=== PATIENT | male | born 1980 | race Caucasian/White ===

== ENCOUNTER 2016-04-16 17:24 | Emergency (ER) | payer OTHER ==
[2016-04-16] MEDS ORDERED: INSULIN, REG.(HUMAN) 100 U/ML VIAL SUBCU ONE (17:58)
[2016-04-16 17:59] VITALS: TEMP 96.9
--- NOTE | 2016-04-16 18:01 | ED.PDOC ---
History of Present Illness - General Chief Complaint: Diabetic Complaint Stated Complaint: Elevated blood sugar Time Seen by Provider: 04/16/16 17:53 Source: patient, RN notes reviewed, Vital Signs reviewed Exam Limitations: no limitations - History of Present Illness Initial Comments: Patient ran out of his insulin and could not get any more. Normally takes Levimir at night and a Novalog sliding scale. His blood sugar at [facility] was 394. Reports his stomach does not feel good but otherwise he is fine. He has not been ill recently, just out of insulin. Timing/Duration: unsure Severity: moderate Improving Factors: nothing Worsening Factors: nothing Associated Symptoms: loss of appetite, malaise Allergies/Adverse Reactions: Allergies Ketorolac Tromethamine [From Toradol] Allergy (Unknown, Verified 12/03/15 07:42) Sulfa Drugs Allergy (Unknown, Verified 12/03/15 07:42) NSAIDs Adverse Reaction (Verified 12/03/15 07:42) Home Medications: Ambulatory Orders Human Insulin Aspart [Novolog] 0 unit SUBCU QID PRN 12/03/15 Alprazolam [Xanax] 1 mg PO TID 02/06/16 Lisinopril 5 mg PO DAILY 02/06/16 Pantoprazole Sodium [Protonix] 40 mg PO DAILY 02/06/16 Zolpidem Tartrate [Ambien] 10 mg PO BEDTIME 02/06/16 Insulin Detemir [Levemir] 16 unit SUBCU BID 04/16/16 Pregabalin [Lyrica] 150 mg PO TID 04/16/16 tiZANidine [Zanaflex] 4 mg PO TID 04/16/16 Review of Systems - Review of Systems Constitutional: States: fever, malaise. Denies: chills, diaphoresis, weakness Respiratory: States: no symptoms reported Cardiology: States: no symptoms reported Gastrointestinal/Abdominal: States: abdominal pain, nausea. Denies: constipation, diarrhea, vomiting Genitourinary: States: no symptoms reported Musculoskeletal: States: no symptoms reported Skin: States: no symptoms reported Neurological: States: no symptoms reported Endocrine: States: no symptoms reported Hematologic/Lymphatic: States: no symptoms reported Past Medical History (General) - Patient Medical History Hx Seizures: No Hx Stroke: No Hx Dementia: No Hx Asthma: Yes Hx of COPD: No Hx Cardiac Disorders: No Hx Congestive Heart Failure: No Hx Pacemaker: No Hx Hypertension: Yes Hx Thyroid Disease: No Hx Diabetes: Yes Hx Gastroesophageal Reflux: No Hx Renal Disease: Yes - elevated levels Hx Cancer: No Hx of HIV: No Hx Hepatitis C: No Hx MRSA: Yes MRSA Source:: Wound - Vaccination History Hx Tetanus, Diphtheria Vaccination: Yes Hx Influenza Vaccination: No Hx Pneumococcal Vaccination: Yes - Social History Hx Tobacco Use: Yes Hx Chewing Tobacco Use: No Hx Alcohol Use: No Hx Substance Use: Yes - occasional marajuana Hx Substance Use Treatment: No Hx Depression: Yes Hx Physical Abuse: No Hx Emotional Abuse: No Hx Suspected Abuse: No - Female History Patient : No Family Medical History - Family History Mother Family History: Unknown Living Status: Still Living Physical Exam - Physical Exam General Appearance: Alert, Comfortable, No apparent distress, Well Developed, Well Groomed, Well Hydrated, Well Nourished Eye Exam: bilateral normal Neck: non-tender, full range of motion, supple, normal inspection Respiratory: chest non-tender, lungs clear, normal breath sounds, no respiratory distress, no accessory muscle use Cardiovascular/Chest: regular rate, rhythm, no edema, no gallop, no JVD, no murmur Gastrointestinal/Abdominal: normal bowel sounds, non tender, soft, no organomegaly, no pulsatile mass Extremity: normal range of motion, non-tender, normal inspection Neurologic: no motor/sensory deficits, alert, normal mood/affect, oriented x 3 Skin Exam: normal color, warm/dry Lymphatic: no adenopathy Progress - Progress Progress: 04/16/16 19:14 Recheck FSBS is 130. Patient is doing well and tolerating PO fluids. Reports he has prescriptions at the pharmacy, just needs someone to go get them for him. Does not need new prescriptions. - Results/Orders Results/Orders: Laboratory Tests 04/16/16 18:07 WBC 8.0 RBC 4.33 L Hgb 12.6 L Hct 38.6 L MCV 89.0 MCH 29.0 MCHC 32.8 L RDW 14.8 H Plt Count 424 H MPV 8.3 Absolute Neuts (auto) 5.30 Absolute Lymphs (auto) 2.00 Absolute Monos (auto) 0.50 Absolute Eos (auto) 0.10 Absolute Basos (auto) 0.10 Neutrophils % 66.2 Lymphocytes % 24.6 Monocytes % 6.1 Eosinophils % 1.8 Basophils % 1.3 Sodium 133 L Potassium 4.3 Chloride 100 L Carbon Dioxide 28 Anion Gap 9.3 L BUN 17 Creatinine 0.93 BUN/Creatinine Ratio 18.3 Random Glucose 278 H Serum Osmolality 277.9 Calcium 9.1 Total Bilirubin 0.3 AST 21 ALT 22 Alkaline Phosphatase 97 Serum Total Protein 7.5 Albumin 3.9 Globulin 3.6 H Albumin/Globulin Ratio 1.1 Serum Ketones Negative Departure - Departure Clinical Impression: Diabetes mellitus, Hyperglycemia Time of Disposition: 19:16 Disposition: Nursing Home Condition: Good Departure Forms: ED Discharge - Pt. Copy, Patient Portal Self Enrollment Instructions: Type 2 Diabetes Diet: diabetic diet Home Medications: Ambulatory Orders Human Insulin Aspart [Novolog] 0 unit SUBCU QID PRN 12/03/15 Alprazolam [Xanax] 1 mg PO TID 02/06/16 Lisinopril 5 mg PO DAILY 02/06/16 Pantoprazole Sodium [Protonix] 40 mg PO DAILY 02/06/16 Zolpidem Tartrate [Ambien] 10 mg PO BEDTIME 02/06/16 Insulin Detemir [Levemir] 16 unit SUBCU BID 04/16/16 Pregabalin [Lyrica] 150 mg PO TID 04/16/16 tiZANidine [Zanaflex] 4 mg PO TID 04/16/16
[2016-04-16 18:48] VITALS: O2SAT 97
[2016-04-16 19:27] VITALS: BP 123/81
== END 2016-04-16 19:26 ==
LOC: ER 17:24
DX: E11.65 Type 2 diabetes mellitus with hyperglycemia (principal); I10 Essential (primary) hypertension; J45.909 Unspecified asthma, uncomplicated; N28.9 Disorder of kidney and ureter, unspecified; F32.9 Major depressive disorder, single episode, unspecified; Z86.14 Personal history of Methicillin resistant Staphylococcus aureus infection; Z88.2 Allergy status to sulfonamides; Z88.6 Allergy status to analgesic agent; Z87.891 Personal history of nicotine dependence; Z79.4 Long term (current) use of insulin; Z79.899 Other long term (current) drug therapy

== ENCOUNTER 2016-04-17 21:14 | Emergency (ER) | payer OTHER ==
[2016-04-17] MEDS ORDERED: INSULIN, REG.(HUMAN) 100 U/ML VIAL IV ONE (21:23)
[2016-04-17] MEDS ORDERED: SODIUM CHLORIDE 0.9% 1000ML 1,000 ML IVS ONE (21:23)
[2016-04-17 21:39] VITALS: TEMP 96
[2016-04-17] MEDS ORDERED: INSULIN, REG.(HUMAN) 250 UNITS in SODIUM CHL 0.9% 250ML (AVIVA) 247.5 ML IVPB SCH ×2 (22:30)
[2016-04-17] MEDS ORDERED: SODIUM CHL 0.9% 250ML (AVIVA) 250 ML IVPB ONE (22:44)
[2016-04-18] MEDS ORDERED: INSULIN DETEMIR 100 UNITS/ML PEN SUBCU ONE (00:16)
[2016-04-18] MEDS ORDERED: SODIUM CHLORIDE 0.9% 1000ML 1,000 ML IVS ONE (01:18)
--- NOTE | 2016-04-18 05:16 | ED.PDOC ---
History of Present Illness - General Source: patient, police Exam Limitations: no limitations - History of Present Illness Initial Comments: the patient is a 35-year-old male presenting to the emergency room secondary to uncontrolled diabetes. The patient is an inmate and went a fairly significant. Without getting his insulin. He was actually seen here yesterday in the emergency room and was given some insulin. He unfortunately did not get further insulin for quite some time. Glucoses ran up the 600s at assisted and the patient was sent here. The patient is complaining of nausea and abdominal cramping. No vomiting. No headache. No altered mental status. No change in respirations. Timing/Duration: 24 hours Severity: moderate Improving Factors: medication Worsening Factors: nothing Associated Symptoms: loss of appetite, malaise, weakness <Ortiz Zapata - Last Filed: 04/18/16 06:47> <Meron Ortiz - Last Filed: 04/18/16 07:54> - General Chief Complaint: Diabetic Complaint Stated Complaint: elevated blood sugar Time Seen by Provider: 04/17/16 21:22 - History of Present Illness Allergies/Adverse Reactions: Allergies Ketorolac Tromethamine [From Toradol] Allergy (Unknown, Verified 12/03/15 07:42) Sulfa Drugs Allergy (Unknown, Verified 12/03/15 07:42) NSAIDs Adverse Reaction (Verified 12/03/15 07:42) Home Medications: Ambulatory Orders Human Insulin Aspart [Novolog] 0 unit SUBCU QID PRN 12/03/15 Alprazolam [Xanax] 1 mg PO TID 02/06/16 Lisinopril 5 mg PO DAILY 02/06/16 Pantoprazole Sodium [Protonix] 40 mg PO DAILY 02/06/16 Zolpidem Tartrate [Ambien] 10 mg PO BEDTIME 02/06/16 Insulin Detemir [Levemir] 16 unit SUBCU BID 04/16/16 Review of Systems - Review of Systems Constitutional: States: malaise EENTM: States: no symptoms reported Respiratory: States: no symptoms reported Cardiology: States: no symptoms reported Gastrointestinal/Abdominal: States: abdominal pain Genitourinary: States: no symptoms reported Musculoskeletal: States: other - generalized body aches Skin: States: no symptoms reported Neurological: States: no symptoms reported All other Systems: No Change from Baseline <Ortiz Zapata - Last Filed: 04/18/16 06:47> Past Medical History (General) - Patient Medical History Hx Seizures: No Hx Stroke: No Hx Dementia: No Hx Asthma: Yes Hx of COPD: No Hx Cardiac Disorders: No Hx Congestive Heart Failure: No Hx Pacemaker: No Hx Hypertension: Yes Hx Thyroid Disease: No Hx Diabetes: Yes Hx Gastroesophageal Reflux: Yes Hx Renal Disease: Yes - elevated levels Hx Cancer: No Hx of HIV: No Hx Hepatitis C: No Hx MRSA: Yes MRSA Source:: Wound - Vaccination History Hx Tetanus, Diphtheria Vaccination: Yes Hx Influenza Vaccination: No Hx Pneumococcal Vaccination: Yes - Social History Hx Tobacco Use: Yes Hx Chewing Tobacco Use: No Hx Alcohol Use: No Hx Substance Use: Yes - occasional marajuana Hx Substance Use Treatment: No Hx Depression: Yes Hx Physical Abuse: No Hx Emotional Abuse: No Hx Suspected Abuse: No - Female History Patient : No <Ortiz Zapata - Last Filed: 04/18/16 06:47> Family Medical History - Family History Mother Family History: Unknown Living Status: Still Living <Ortiz Zapata - Last Filed: 04/18/16 06:47> Physical Exam - Physical Exam General Appearance: Alert, Comfortable, No apparent distress Eye Exam: bilateral normal Ears, Nose, Throat: normal ENT inspection, normal pharynx Neck: full range of motion, supple, normal inspection Respiratory: chest non-tender, lungs clear, normal breath sounds, no respiratory distress, no accessory muscle use Cardiovascular/Chest: normal peripheral pulses, regular rate, rhythm, no edema Peripheral Pulses: radial,right: 2+, radial,left: 2+, dorsalis pedis,right: 2+, dorsalis pedis,left: 2+ Gastrointestinal/Abdominal: non tender, soft Rectal Exam: deferred Back Exam: normal inspection, no CVA tenderness Extremity: normal range of motion, non-tender, normal inspection, no pedal edema , normal capillary refill Neurologic: alert, normal mood/affect, oriented x 3, other - he does have some peripheral neuropathy of both feet. Skin Exam: normal color Comments: Vital Signs - 24 hr 04/17/16 04/17/16 04/18/16 21:36 23:01 00:08 Temperature 96.0 F L Pulse Rate [ 88 76 94 H Right] Respiratory 16 16 20 Rate Blood Pressure 123/65 114/74 125/76 [Left Arm] O2 Sat by Pulse 95 93 L Oximetry 04/18/16 04/18/16 04/18/16 00:50 01:45 03:00 Temperature Pulse Rate [ 80 91 H 88 Right] Respiratory 18 16 18 Rate Blood Pressure 116/74 95/66 123/72 [Left Arm] O2 Sat by Pulse 93 L 93 L Oximetry <BennyOrtiz L - Last Filed: 04/18/16 06:47> Progress - Progress Progress: 04/18/16 05:17 the patient is a 35-year-old male presenting with mild DKA. He has received several liters of IV fluids. He has been placed on insulin drip and his small anion gap is closed. The gap has been closed for more than 4 hours prior to departure. the patient is feeling better. He did develop some mild hypoglycemia and required short-term support with D5 half normal saline. He has tolerated oral intake well. He needs to resume his routine insulin schedule immediately upon arrival back to the facility. He needs a sliding scale insulin before every meal see him daily at bedtime. Strict ER warnings were given for any deterioration. 04/18/16 06:11 - Results/Orders Results/Orders: Laboratory Tests 04/17/16 04/17/16 04/17/16 21:23 21:40 23:41 WBC 8.2 RBC 4.03 L Hgb 11.8 L Hct 37.0 L MCV 91.8 MCH 29.2 MCHC 31.8 L RDW 15.4 H Plt Count 408 H MPV 8.5 Absolute Neuts (auto) 5.30 Absolute Lymphs (auto) 2.20 Absolute Monos (auto) 0.40 Absolute Eos (auto) 0.10 Absolute Basos (auto) 0.20 H Neutrophils % 64.8 Lymphocytes % 27.4 Monocytes % 5.0 Eosinophils % 0.7 L Basophils % 2.1 H pCO2 35 pO2 83 HCO3 15.6 ABG pH 7.280 L* ABG O2 Saturation 95.8 ABG Base Excess -9.9 ABG Deoxyhemoglobin 4.1 Oxyhemoglobin % 94.0 Carboxyhemoglobin % 0.6 Methemoglobin % Sat 1.3 Calc Total Hemoglobin 10.6 L Sodium 127 L Potassium 4.9 Chloride 94 L Carbon Dioxide 18 L D Anion Gap 19.9 H BUN 28 H D Creatinine 1.26 BUN/Creatinine Ratio 22.2 H POC Glucose > 400 H* D Random Glucose 739 H* Serum Osmolality Not Reportable Calcium 8.6 Total Bilirubin 1.0 AST 47 H D ALT 31 Alkaline Phosphatase 115 Serum Total Protein 6.5 Albumin 3.4 Globulin 3.1 Albumin/Globulin Ratio 1.1 Urine Color Yellow Urine Appearance Clear Urine pH 5.0 Ur Specific [place] <= 1.005 Urine Protein Negative Urine Glucose (UA) >=1000 H Urine Ketones 40 H Urine Blood Negative Urine Nitrite Negative Urine Bilirubin Negative Urine Urobilinogen 0.2 Ur Leukocyte Esterase Negative Urine RBC 0-1 Urine WBC 0-1 Ur Epithelial Cells 0 Urine Bacteria 0 04/17/16 04/18/16 04/18/16 23:45 02:45 05:02 WBC RBC Hgb Hct MCV MCH MCHC RDW Plt Count MPV Absolute Neuts (auto) Absolute Lymphs (auto) Absolute Monos (auto) Absolute Eos (auto) Absolute Basos (auto) Neutrophils % Lymphocytes % Monocytes % Eosinophils % Basophils % pCO2 pO2 HCO3 ABG pH ABG O2 Saturation ABG Base Excess ABG Deoxyhemoglobin Oxyhemoglobin % Carboxyhemoglobin % Methemoglobin % Sat Calc Total Hemoglobin Sodium 137 Potassium 3.7 Chloride 106 Carbon Dioxide 25 Anion Gap 9.7 L BUN 24 H Creatinine 0.88 BUN/Creatinine Ratio 27.3 H POC Glucose 76 Random Glucose 512 H* 225 H D Serum Osmolality 284.9 Calcium 8.5 Total Bilirubin AST ALT Alkaline Phosphatase Serum Total Protein Albumin Globulin Albumin/Globulin Ratio Urine Color Urine Appearance Urine pH Ur Specific [place] Urine Protein Urine Glucose (UA) Urine Ketones Urine Blood Urine Nitrite Urine Bilirubin Urine Urobilinogen Ur Leukocyte Esterase Urine RBC Urine WBC Ur Epithelial Cells Urine Bacteria <Ortiz Zapata - Last Filed: 04/18/16 06:47> - Progress Progress: 04/18/16 07:51 Fasting glucose is now 178. Will d/c back to assisted. He has long acting and regular insulin at assisted. He does a sliding scale on his regular insulin. <Meron Ortiz - Last Filed: 04/18/16 07:54> Departure - Departure Diet: diabetic diet Activity: increase activity as tolerated <Ortiz Zapata - Last Filed: 04/18/16 06:47> - Departure Time of Disposition: 07:53 Diet: diabetic diet <Meron Ortiz - Last Filed: 04/18/16 07:54> - Departure Clinical Impression: Diabetes mellitus with ketoacidosis Qualifiers: Diabetes mellitus type: type 1 Diabetes mellitus complication detail: without coma Qualifier Code: (E10.10) Type 1 diabetes mellitus with ketoacidosis without coma Disposition: [facility] Condition: Fair Departure Forms: ED Discharge - Pt. Copy, Patient Portal Self Enrollment Instructions: DI for Diabetic Ketoacidosis Referrals: Vahid Price IV, MD [Primary Care Provider] - 1-5 Days Home Medications: Ambulatory Orders Human Insulin Aspart [Novolog] 0 unit SUBCU QID PRN 12/03/15 Alprazolam [Xanax] 1 mg PO TID 02/06/16 Lisinopril 5 mg PO DAILY 02/06/16 Pantoprazole Sodium [Protonix] 40 mg PO DAILY 02/06/16 Zolpidem Tartrate [Ambien] 10 mg PO BEDTIME 02/06/16 Insulin Detemir [Levemir] 16 unit SUBCU BID 04/16/16 Additional Instructions: the patient is a 35-year-old male presenting with mild DKA. He has received several liters of IV fluids. He has been placed on insulin drip and his small anion gap is closed. The gap has been closed for more than 4 hours prior to departure. the patient is feeling better. He did develop some mild hypoglycemia and required short-term support with D5 half normal saline. He has tolerated oral intake well. He needs to resume his routine insulin schedule immediately upon arrival back to the facility. He needs a sliding scale insulin before every meal see him daily at bedtime. Strict ER warnings were given for any deterioration.
[2016-04-18] MEDS ORDERED: DEX 5% W/NACL 0.9% 1000ML 1,000 ML IVS ONE (06:06)
[2016-04-18] MEDS ORDERED: DEX 5% W/NACL 0.45% 1000ML 1,000 ML IVS ONE (06:09)
[2016-04-18] MEDS ORDERED: DEX 5% W/NACL 0.9% 1000ML 1,000 ML IVS PRN (06:27)
[2016-04-18 06:33] VITALS: O2SAT 97
[2016-04-18 08:05] VITALS: BP 115/68
== END 2016-04-18 08:05 ==
LOC: ER 21:14
DX: E10.10 Type 1 diabetes mellitus with ketoacidosis without coma (principal); I10 Essential (primary) hypertension; R11.0 Nausea; K21.9 Gastro-esophageal reflux disease without esophagitis; N28.9 Disorder of kidney and ureter, unspecified; Z86.14 Personal history of Methicillin resistant Staphylococcus aureus infection; Z79.4 Long term (current) use of insulin; Z79.899 Other long term (current) drug therapy; J45.909 Unspecified asthma, uncomplicated; Z87.891 Personal history of nicotine dependence; Z88.6 Allergy status to analgesic agent; Z88.2 Allergy status to sulfonamides
CPT/HCPCS: 36416; 80048; 80053; 81001; 82947; 82948; 85025; J1815; J7030; J7799

== ENCOUNTER 2016-07-13 00:26 | Emergency (ER) | payer MEDICAID, OTHER ==
--- NOTE | 2016-07-13 00:44 | ED.PDOC ---
History of Present Illness - General Chief Complaint: General Stated Complaint: high blood sugar, abrasion left great toe Time Seen by Provider: 07/13/16 00:42 Source: patient, RN notes reviewed, Vital Signs reviewed Exam Limitations: no limitations - History of Present Illness Initial Comments: Patient is a 35 y/o male who was brought in from the [facility]. His blood sugar was over 600. Patient is a type 1 diabetic and uses Levemir BID and Novolog QAC. His last dose of insulin was this morning. He has had diarrhea. Also, he has an injury on his left great toe. He denies any actual injury. The toe nail just fell off. He has not feeling in that toe, therefore it does not hurt. Timing/Duration: unsure Severity: moderate Improving Factors: nothing Worsening Factors: nothing Associated Symptoms: denies symptoms Allergies/Adverse Reactions: Allergies Ketorolac Tromethamine [From Toradol] Allergy (Unknown, Verified 07/13/16 00:34) Sulfa Drugs Allergy (Unknown, Verified 07/13/16 00:34) NSAIDs Adverse Reaction (Verified 07/13/16 00:34) Home Medications: Ambulatory Orders Human Insulin Aspart [Novolog] 0 unit SUBCU QID PRN 12/03/15 Alprazolam [Xanax] 1 mg PO TID 02/06/16 Lisinopril 5 mg PO DAILY 02/06/16 Pantoprazole Sodium [Protonix] 40 mg PO DAILY 02/06/16 Zolpidem Tartrate [Ambien] 10 mg PO BEDTIME 02/06/16 Insulin Detemir [Levemir] 16 unit SUBCU BID 04/16/16 Ipratropium/Albuterol Inhaler [Combivent Respimat 20-100 Mcg/Act] 120 puff INH PRN 07/13/16 Pregabalin [Lyrica] 150 mg PO TID 07/13/16 Review of Systems - Review of Systems Constitutional: States: no symptoms reported EENTM: States: no symptoms reported Respiratory: States: no symptoms reported Cardiology: States: no symptoms reported Gastrointestinal/Abdominal: States: no symptoms reported Genitourinary: States: no symptoms reported Musculoskeletal: States: no symptoms reported Skin: States: other - loss of toenail and ulceration of great left toe Neurological: States: paresthesia, pre-existing deficit Endocrine: States: no symptoms reported Hematologic/Lymphatic: States: no symptoms reported All other Systems: Reviewed and Negative Past Medical History (General) - Patient Medical History Hx Seizures: No Hx Stroke: No Hx Dementia: No Hx Asthma: Yes Hx of COPD: No Hx Cardiac Disorders: No Hx Congestive Heart Failure: No Hx Pacemaker: No Hx Hypertension: Yes Hx Thyroid Disease: No Hx Diabetes: Yes Hx Gastroesophageal Reflux: Yes Hx Renal Disease: No Hx Cancer: No Hx of HIV: No Hx Hepatitis C: No Hx MRSA: No MRSA Source:: Wound - Vaccination History Hx Tetanus, Diphtheria Vaccination: No Hx Influenza Vaccination: No Hx Pneumococcal Vaccination: No Immunizations Up to Date: No - Social History Hx Tobacco Use: Yes Cigarettes Packs Per Day: 1 Hx Chewing Tobacco Use: No Hx Alcohol Use: No Hx Substance Use: No Hx Substance Use Treatment: No Hx Depression: No Feels Threatened In Home Enviroment: No Feels Threatened In a Relationship: No Hx Physical Abuse: No Hx Emotional Abuse: No Hx Suspected Abuse: No - Female History Patient : No Family Medical History - Family History Mother Family History: Unknown Living Status: Still Living Physical Exam - Physical Exam General Appearance: Alert, Comfortable, No apparent distress Ears, Nose, Throat: hearing grossly normal, normal ENT inspection, normal pharynx Neck: non-tender, full range of motion, supple, lymphadenopathy (R) Respiratory: lungs clear, normal breath sounds, no respiratory distress, no accessory muscle use Cardiovascular/Chest: regular rate, rhythm, no edema, no gallop, no murmur Gastrointestinal/Abdominal: normal bowel sounds, non tender, soft, no organomegaly Extremity: normal range of motion, non-tender, swelling Neurologic: alert, normal mood/affect, oriented x 3, sensory deficit Skin Exam: rash - Left great toe--erythema and swelling with half of nail broken off and ulceration of area next to toenail. Progress - Results/Orders Results/Orders: 07/13/16 07/13/16 07/13/16 00:31 01:26 01:30 Temperature 97.8 F 98.0 F Pulse Rate [ 104 H 102 H 102 H monitor] Respiratory 18 20 Rate Blood Pressure 148/87 96/51 96/51 [Left Arm] O2 Sat by Pulse 97 100 Oximetry 07/13/16 01:29 BLOOD CULTURE Stat 07/13/16 02:02 Vancomycin HCl Inj 1,000 mg Sodium Chloride 0.9% 250Ml [NS 250ml] 250 ml IVPB ONCE 07/13/16 02:05 Insulin, Reg.(Human) [HumuLIN R] 250 units Sodium Chl 0.9% 250Ml (Kera) [NS 250ml (KERA)] 247.5 ml IVPB ONCE Laboratory Results WBC 9.8 K/mm3 (4.8-10.8) 07/13/16 01:05 RBC 4.17 M/mm3 (4.70-6.10) L 07/13/16 01:05 Hgb 12.3 gm/dL (14.0-18.0) L 07/13/16 01:05 Hct 38.4 % (42.0-52.0) L 07/13/16 01:05 MCV 92.0 fl (80.0-94.0) 07/13/16 01:05 MCH 29.4 pg (27.0-31.0) 07/13/16 01:05 MCHC 32.1 g/dL (33.0-37.0) L 07/13/16 01:05 RDW 15.1 % (11.5-14.5) H 07/13/16 01:05 Plt Count 385 K/mm3 (130-400) 07/13/16 01:05 MPV 8.7 fl (7.40-10.4) 07/13/16 01:05 Absolute Neuts (auto) 5.60 K/uL (1.8-6.8) 07/13/16 01:05 Absolute Lymphs (auto) 3.10 K/uL (1.0-3.4) 07/13/16 01:05 Absolute Monos (auto) 0.70 K/uL (0.2-0.8) 07/13/16 01:05 Absolute Eos (auto) 0.30 K/uL (0.0-0.4) 07/13/16 01:05 Absolute Basos (auto) 0.10 K/uL (0.0-0.1) 07/13/16 01:05 Neutrophils % 57.2 % (42.0-78.0) 07/13/16 01:05 Lymphocytes % 32.0 % (20.0-50.0) 07/13/16 01:05 Monocytes % 6.7 % (2.0-9.0) 07/13/16 01:05 Eosinophils % 2.7 % (1.0-5.0) 07/13/16 01:05 Basophils % 1.4 % (0.0-2.0) 07/13/16 01:05 Sodium 130 mmol/L (135-145) L 07/13/16 01:05 Potassium 4.7 mmol/L (3.6-5.0) 07/13/16 01:05 Chloride 94 mmol/L (101-111) L 07/13/16 01:05 Carbon Dioxide 28 mmol/L (21-31) 07/13/16 01:05 Anion Gap 12.7 (12-18) 07/13/16 01:05 BUN 23 mg/dL (7-18) H 07/13/16 01:05 Creatinine 1.06 mg/dL (0.6-1.3) 07/13/16 01:05 BUN/Creatinine Ratio 21.7 (10-20) H 07/13/16 01:05 Random Glucose 686 mg/dL (70-105) H* 07/13/16 01:05 Serum Osmolality 296.9 mOsm/L (275-295) H 07/13/16 01:05 Calcium 9.0 mg/dL (8.4-10.2) 07/13/16 01:05 Total Bilirubin 0.3 mg/dL (0.2-1.0) 07/13/16 01:05 AST 45 IU/L (10-42) H 07/13/16 01:05 ALT 32 IU/L (10-60) 07/13/16 01:05 Alkaline Phosphatase 142 IU/L (42-121) H 07/13/16 01:05 Serum Total Protein 7.4 gm/dL (6.4-8.2) 07/13/16 01:05 Albumin 3.9 g/dl (3.2-5.5) 07/13/16 01:05 Globulin 3.5 gm/dL (2.3-3.5) 07/13/16 01:05 Albumin/Globulin Ratio 1.1 (1.1-1.9) 07/13/16 01:05 Urine Color Yellow (Yellow) 07/13/16 01:05 Urine Appearance Clear (Clear) 07/13/16 01:05 Urine pH 6.0 (4.5-7.8) 07/13/16 01:05 Ur Specific [place] 1.010 (1.005-1.030) 07/13/16 01:05 Urine Protein Negative mg/dL 07/13/16 01:05 Urine Glucose (UA) >=1000 mg/dL (Negative) H 07/13/16 01:05 Urine Ketones Negative mg/dL (NEGATIVE) 07/13/16 01:05 Urine Blood Negative (Negative) 07/13/16 01:05 Urine Nitrite Negative 07/13/16 01:05 Urine Bilirubin Negative (NEGATIVE) 07/13/16 01:05 Urine Urobilinogen 0.2 mg/dL (0.2-1.0) 07/13/16 01:05 Ur Leukocyte Esterase Negative (Negative) 07/13/16 01:05 Urine RBC 0-1 /hpf 07/13/16 01:05 Urine WBC 0 /hpf 07/13/16 01:05 Ur Epithelial Cells 0 /hpf 07/13/16 01:05 Urine Bacteria Rare 07/13/16 01:05 Lactic Acid 1.2 - EKG/XRAY/CT XRAY: Left toes - Evidence of osteomyelitis Departure - Departure Clinical Impression: 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 Time of Disposition: 02:58 Disposition: Transfer to Hospital Home Medications: Ambulatory Orders Human Insulin Aspart [Novolog] 0 unit SUBCU QID PRN 12/03/15 Alprazolam [Xanax] 1 mg PO TID 02/06/16 Lisinopril 5 mg PO DAILY 02/06/16 Pantoprazole Sodium [Protonix] 40 mg PO DAILY 02/06/16 Zolpidem Tartrate [Ambien] 10 mg PO BEDTIME 02/06/16 Insulin Detemir [Levemir] 16 unit SUBCU BID 04/16/16 Ipratropium/Albuterol Inhaler [Combivent Respimat 20-100 Mcg/Act] 120 puff INH PRN 07/13/16 Pregabalin [Lyrica] 150 mg PO TID 07/13/16 Transfer to Outside Facility - Transfer Information Accepting Provider:: Dr. Martinez Accepting Facility: [facility] - Patient requires ICU and Ortho Reason for Transfer: required specialist not available
--- NOTE | 2016-07-13 01:17 | RAD ---
EXAM DESCRIPTION: Toes,Left CLINICAL HISTORY: 35 years, Male, left great toe injury COMPARISON: Left foot radiographs December 03, 2015 FINDINGS: There is no acute fracture or dislocation. There is diffuse soft tissue swelling overlying the first distal phalanx. There is irregularity of the cortical surface of the distal first phalangeal tuft. There is a lytic focus of the base of the first distal phalanx best seen on the lateral view. There are no additional areas of soft tissue swelling. The remaining tarsal, metatarsal, and phalangeal bones are normal in appearance. IMPRESSION: 1. No acute fracture or dislocation. 2. Soft tissue swelling with findings suggestive of osteomyelitis of the distal first phalanx, recommend correlation with patient's history. Electronically signed by: Laure Crain MD 07/13/2016 1:16 AM CDT
[2016-07-13] MEDS ORDERED: VANCOMYCIN HCL INJ 1,000 MG in SODIUM CHLORIDE 0.9% 250ML 250 ML IVPB ONE (02:02)
[2016-07-13] MEDS ORDERED: INSULIN, REG.(HUMAN) 250 UNITS in SODIUM CHL 0.9% 250ML (AVIVA) 247.5 ML IVPB ONE ×2 (02:05)
[2016-07-13] MEDS ORDERED: SODIUM CHLORIDE 0.9% 250ML 250 ML ONE (02:07)
[2016-07-13] MEDS ORDERED: VANCOMYCIN HCL INJ 1,000 MG VIAL IVPB ONE (02:07)
[2016-07-13] MEDS ORDERED: INSULIN, REG.(HUMAN) 100 U/ML VIAL ONE (02:28)
[2016-07-13] MEDS ORDERED: SODIUM CHL 0.9% 250ML (AVIVA) 250 ML IVPB ONE (02:28)
[2016-07-13 02:43] VITALS: BP 117/78; TEMP 97.8; O2SAT 96
== END 2016-07-13 03:12 | disposition short-term general hospital (02) ==
LOC: ER 00:26
DX: E10.65 Type 1 diabetes mellitus with hyperglycemia (principal); E10.69 Type 1 diabetes mellitus with other specified complication; M86.9 Osteomyelitis, unspecified; F17.210 Nicotine dependence, cigarettes, uncomplicated; I10 Essential (primary) hypertension; K21.9 Gastro-esophageal reflux disease without esophagitis; Z79.4 Long term (current) use of insulin; Z79.899 Other long term (current) drug therapy; Z88.2 Allergy status to sulfonamides; Z88.6 Allergy status to analgesic agent
CPT/HCPCS: 36415; 73660; 80053; 81001; 83605; 85025; 87040; J3370; J7050